=== PATIENT | male | born 1975 | race American Indian/Alaskan Native ===

== ENCOUNTER 2021-09-17 09:03 | Emergency (ER) | payer SELFPAY ==
--- NOTE | 2021-09-17 11:54 | Emergency Department Report ---
ED Extremity Problem HPI - General Chief complaint: Extremity Problem,Nontraumatic Stated complaint: RGHT KNEE SWOLLEN,RGHT BIG TOE PAIN Time Seen by Provider: 09/17/21 11:10 Source: patient Mode of arrival: Ambulatory Limitations: No Limitations - History of Present Illness Initial comments: Patient is a 46-year-old male presents emergency room complaints of right knee pain and swelling that began a week ago. Patient states a couple days ago he also began having pain and swelling in his right big toe. Patient states yesterday he began having swelling down his leg and pain in his right calf. He states he does have a history of gout. He denies any fall or injury. He denies any fever, nausea, vomiting, diarrhea, rashes, drainage, numbness, weakness. No allergies to medications. - Related Data Previous Rx's Medication Instructions Recorded Last Taken Type Colchicine 0.6 mg PO DAILY 1 Days #3 09/17/21 Unknown Rx Indomethacin [Indocin] 25 mg PO Q8H #21 cap 09/17/21 Unknown Rx Prednisone [predniSONE 10 mg 10 mg PO .TAPER #1 09/17/21 Unknown Rx (6-Day Pack, 21 Tabs)] traMADoL [Ultram 50 MG tab] 50 mg PO Q6HR PRN #12 tablet 09/17/21 Unknown Rx Allergies Allergy/AdvReac Type Severity Reaction Status Date / Time No Known Allergies Allergy Verified 09/17/21 09:45 ED Review of Systems ROS: Stated complaint: RGHT KNEE SWOLLEN,RGHT BIG TOE PAIN Other details as noted in HPI Comment: All other systems reviewed and negative ED Past Medical Hx - Past Medical History Previous Medical History?: Yes Hx Asthma: Yes Additional medical history: gout - Surgical History Past Surgical History?: No - Medications Home Medications: Home Medications Medication Instructions Recorded Confirmed Last Taken Type Colchicine 0.6 mg PO DAILY 1 Days #3 09/17/21 Unknown Rx Indomethacin [Indocin] 25 mg PO Q8H #21 cap 09/17/21 Unknown Rx Prednisone [predniSONE 10 mg 10 mg PO .TAPER #1 09/17/21 Unknown Rx (6-Day Pack, 21 Tabs)] traMADoL [Ultram 50 MG tab] 50 mg PO Q6HR PRN #12 tablet 09/17/21 Unknown Rx ED Physical Exam - General Limitations: No Limitations General appearance: alert, in no apparent distress - Head Head exam: Present: atraumatic, normocephalic - Eye Eye exam: Present: normal appearance - ENT ENT exam: Present: mucous membranes moist - Extremities Exam Extremities exam: Present: other (ttp and edema present to the right knee, right calf, and right big toe, mild increased warmth, no erythema, no skin changes, neurovascularly intact) - Neurological Exam Neurological exam: Present: alert, oriented X3 - Psychiatric Psychiatric exam: Present: normal affect, normal mood - Skin Skin exam: Present: warm, dry, intact ED Course Vital Signs 09/17/21 09/17/21 09:45 15:28 Temperature 98 F 98.5 F Pulse Rate 94 H 85 Respiratory 16 18 Rate Blood Pressure 187/119 166/98 [Left] O2 Sat by Pulse 100 98 Oximetry ED Medical Decision Making - Lab Data Result diagrams: 09/17/21 12:07 09/17/21 14:01 Lab Results 09/17/21 09/17/21 09/17/21 Range/Units 12:07 12:07 12:07 WBC 11.6 H (4.5-11.0) K/mm3 RBC 4.49 (3.65-5.03) M/mm3 Hgb 12.9 (11.8-15.2) gm/dl Hct 38.6 (35.5-45.6) % MCV 86 (84-94) fl MCH 29 (28-32) pg MCHC 34 (32-34) % RDW 14.4 (13.2-15.2) % Plt Count 411 (140-440) K/mm3 Lymph % (Auto) 29.3 (13.4-35.0) % Beadle % (Auto) 8.2 H (0.0-7.3) % Eos % (Auto) 0.8 (0.0-4.3) % Baso % (Auto) 0.6 (0.0-1.8) % Lymph # (Auto) 3.4 (1.2-5.4) K/mm3 Beadle # (Auto) 1.0 H (0.0-0.8) K/mm3 Eos # (Auto) 0.1 (0.0-0.4) K/mm3 Baso # (Auto) 0.1 (0.0-0.1) K/mm3 Seg Neutrophils % 61.1 (40.0-70.0) % Seg Neutrophils # 7.1 (1.8-7.7) K/mm3 PT 13.3 (12.2-14.9) Sec. INR 0.91 (0.87-1.13) APTT 36.1 (24.2-36.6) Sec. Sodium TNR Potassium TNR Chloride TNR Carbon Dioxide TNR Anion Gap TNR BUN TNR Creatinine TNR Estimated GFR TNR BUN/Creatinine Ratio TNR Glucose TNR Uric Acid TNR Calcium TNR Total Bilirubin TNR AST TNR ALT TNR Alkaline Phosphatase TNR C-Reactive Protein TNR Total Protein TNR Albumin TNR Albumin/Globulin Ratio TNR // Range/Units 14:01 WBC (4.5-11.0) K/mm3 RBC (3.65-5.03) M/mm3 Hgb (11.8-15.2) gm/dl Hct (35.5-45.6) % MCV (84-94) fl MCH (28-32) pg MCHC (32-34) % RDW (13.2-15.2) % Plt Count (140-440) K/mm3 Lymph % (Auto) (13.4-35.0) % Beadle % (Auto) (0.0-7.3) % Eos % (Auto) (0.0-4.3) % Baso % (Auto) (0.0-1.8) % Lymph # (Auto) (1.2-5.4) K/mm3 Beadle # (Auto) (0.0-0.8) K/mm3 Eos # (Auto) (0.0-0.4) K/mm3 Baso # (Auto) (0.0-0.1) K/mm3 Seg Neutrophils % (40.0-70.0) % Seg Neutrophils # (1.8-7.7) K/mm3 PT (12.2-14.9) Sec. INR (0.87-1.13) APTT (24.2-36.6) Sec. Sodium 142 Potassium 4.5 Chloride 100.9 Carbon Dioxide 24 Anion Gap 22 BUN 11 Creatinine 0.9 Estimated GFR > 60 BUN/Creatinine Ratio 12 Glucose 98 Uric Acid 6.6 Calcium 9.9 Total Bilirubin 0.70 AST 25 ALT 32 Alkaline Phosphatase 118 C-Reactive Protein 28.80 H Total Protein 8.6 H Albumin 4.4 Albumin/Globulin Ratio 1.0 Vital Signs 09/17/21 09/17/21 09:45 15:28 Temperature 98 F 98.5 F Pulse Rate 94 H 85 Respiratory 16 18 Rate Blood Pressure 187/119 166/98 [Left] O2 Sat by Pulse 100 98 Oximetry - Radiology Data Radiology results: report reviewed Ordering Physician: SHAMEKA MEHTA Date of Service: 09/17/21 Procedure(s): XR knee 3V RT Accession Number(s): [id number] cc: SHAMEKA MEHTA Fluoro Time In Minutes: XR knee 3V RT INDICATION / CLINICAL INFORMATION: right knee swelling and pain. COMPARISON: None available. FINDINGS: BONES/JOINT(S): No acute fracture or subluxation. 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 SOFT TISSUES: No significant abnormality. ADDITIONAL FINDINGS: None. Signer Name: Hilario Koenig MD Signed: 09/17/2021 12:06 PM Workstation Name: [id number] Transcribed By: RYLAN Dictated By: Hilario Koenig MD Electronically Authenticated By: Hilario Koenig MD Signed Date/Time: 09/17/21 1206 DD/ 1206 TD/TT: Ordering Physician: SHAMEKA MEHTA Date of Service: 09/17/21 Procedure(s): VL venous duplex LE RT Accession Number(s): [id number] cc: SHAMEKA MEHTA VL venous duplex LE RT INDICATION / CLINICAL INFORMATION: right leg swelling and pain. TECHNIQUE: Duplex doppler imaging was performed using venous compression and other maneuvers. COMPARISON: None available. FINDINGS: No venous thrombosis is identified within the visualized extremity vasculature. ADDITIONAL FINDINGS: None. IMPRESSION: 1. No sonographic evidence for DVT in the visualized right lower extremity vasculature. Signer Name: Ghassan Mera MD Signed: 09/17/2021 1:16 PM Workstation Name: [id number] Transcribed By: CS Dictated By: Ghassan Mera MD Electronically Authenticated By: Ghassan Mera MD Signed Date/Time: 09/17/21 1316 DD/ 1315 TD/TT: - Medical Decision Making Patient is a 46-year-old male presents emergency room complaints of right knee pain and swelling that began a week ago. Patient states a couple days ago he also began having pain and swelling in his right big toe. Patient states yesterday he began having swelling down his leg and pain in his right calf. He states he does have a history of gout. He denies any fall or injury. He denies any fever, nausea, vomiting, diarrhea, rashes, drainage, numbness, weakness. No allergies to medications. Initial vitals with elevated blood pressure which improved upon repeat. On exam:ttp and edema present to the right knee, right calf, and right big toe, mild increased warmth, no erythema, no skin changes, neurovascularly intact. Labs with elevated white blood cell count 11.6 and CRP is 28. XR right knee: BONES/JOINT(S): No acute fracture or subluxation. 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 SOFT TISSUES: No significant abnormality. ADDITIONAL FINDINGS: None. US RLE: 1. No sonographic evidence for DVT in the visualized right lower extremity vasculature. discussed case with Dr. Hung, ER attending regarding presentation and results and he believes likely secondary to gout. pt given IM toradol and IM dexamethasone. advised pt Please take medication as prescribed. Increase your water intake. Follow-up with your primary care doctor. Return to emergency room for any new or worsening sympt oms. Eat a low-sodium diet. Incorporate 30 to 60 minutes of daily exercise. Follow- up with a primary care doctor regarding the elevation of a pressure during today's visit. keep a blood pressure log and take this to the primary care doctor Critical care attestation.: If time is entered above; I have spent that time in minutes in the direct care of this critically ill patient, excluding procedure time. ED Disposition Clinical Impression: Knee swelling, Toe swelling, Elevated blood pressure reading Knee pain Qualifiers: Chronicity: acute Laterality: left Qualified Code(s): M25.562 - Pain in left knee Toe pain Qualifiers: Laterality: right Qualified Code(s): M79.674 - Pain in right toe(s) Disposition: HOME / SELF CARE / HOMELESS Is pt being admited?: No Does the pt Need Aspirin: No Condition: Stable Instructions: Acute Knee Pain, Adult, Low-Purine Eating Plan Additional Instructions: Please take medication as prescribed. Increase your water intake. Follow-up with your primary care doctor. Return to emergency room for any new or worsening symptoms. Eat a low-sodium diet. Incorporate 30 to 60 minutes of daily exercise. Follow- up with a primary care doctor regarding the elevation of a pressure during today's visit. keep a blood pressure log and take this to the primary care doctor Prescriptions: Colchicine 0.6 mg PO DAILY 1 Days #3 Indomethacin [Indocin] 25 mg PO Q8H #21 cap Prednisone [predniSONE 10 mg (6-Day Pack, 21 Tabs)] 10 mg PO .TAPER #1 traMADoL [Ultram 50 MG tab] 50 mg PO Q6HR PRN #12 tablet PRN Reason: Pain Referrals: PRIMARY MD GIFTY [Primary Care Provider] - 3-5 Days ALFA DELGADO MD [Staff Physician] - 3-5 Days [facility] [Provider Group] - 3-5 Days Time of Disposition: 15:23 Print Language: ARMENIAN
--- NOTE | 2021-09-17 12:10 | XRay Report ---
XR knee 3V RT INDICATION / CLINICAL INFORMATION: right knee swelling and pain. COMPARISON: None available. FINDINGS: BONES/JOINT(S): No acute fracture or subluxation. 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 SOFT TISSUES: No significant abnormality. ADDITIONAL FINDINGS: None. Signer Name: Hilario Koenig MD Signed: 09/17/2021 12:06 PM Workstation Name: [id number]
[2021-09-17 12:43] LABS: Basophils # (Auto) 0.1 K/mm3 (0.0-0.1); Basophils % (Auto) 0.6 % (0.0-1.8); Eosinophils # (Auto) 0.1 K/mm3 (0.0-0.4); Eosinophils % (Auto) 0.8 % (0.0-4.3); Hematocrit 38.6 % (35.5-45.6); Hemoglobin 12.9 gm/dl (11.8-15.2); Lymphocytes # (Auto) 3.4 K/mm3 (1.2-5.4); Lymphocytes % (Auto) 29.3 % (13.4-35.0); Mean Corpuscular HGB Conc 34 % (32-34); Mean Corpuscular Volume 86 fl (84-94); Monocytes % (Auto) 8.2 % (0.0-7.3); Platelet Count 411 K/mm3 (140-440); Red Blood Count 4.49 M/mm3 (3.65-5.03); Red Cell Distribution Width 14.4 % (13.2-15.2)
[2021-09-17 13:02] LABS: INR 0.91 (0.87-1.13)
[2021-09-17 13:03] LABS: Partial Thromboplastin Time 36.1 Sec. (24.2-36.6)
[2021-09-17 13:17] LABS: Blood Urea Nitrogen TNR mg/dL (9-20)
[2021-09-17 13:18] LABS: Alanine Aminotransferase TNR units/L (7-56); BUN/Creatinine Ratio TNR; Calcium TNR mg/dL (8.4-10.2); Uric Acid TNR mg/dL (3.5-7.6)
[2021-09-17 13:19] LABS: Albumin TNR g/dL (3.9-5); C-Reactive Protein TNR mg/dL (0.00-1.30); Hemolysis Index TNR
--- NOTE | 2021-09-17 13:20 | Vascular Lab Report ---
VL venous duplex LE RT INDICATION / CLINICAL INFORMATION: right leg swelling and pain. TECHNIQUE: Duplex doppler imaging was performed using venous compression and other maneuvers. COMPARISON: None available. FINDINGS: No venous thrombosis is identified within the visualized extremity vasculature. ADDITIONAL FINDINGS: None. IMPRESSION: 1. No sonographic evidence for DVT in the visualized right lower extremity vasculature. Signer Name: Ghassan Mera MD Signed: 09/17/2021 1:16 PM Workstation Name: [id number]
[2021-09-17 14:49] LABS: Alanine Aminotransferase 32 units/L (7-56); Albumin 4.4 g/dL (3.9-5); BUN/Creatinine Ratio 12; Blood Urea Nitrogen 11 mg/dL (9-20); Calcium 9.9 mg/dL (8.4-10.2); Hemolysis Index 33; Uric Acid 6.6 mg/dL (3.5-7.6)
[2021-09-17] MEDS ORDERED: KETOROLAC 30 MG/1 ML INJ ONE (15:12)
[2021-09-17] MEDS ORDERED: dexAMETHasone 20 MG/5 ML VIAL IM ONE (15:14)
[2021-09-17 15:29] VITALS: BP 166/98
== END 2021-09-17 15:34 | disposition home or self-care (01) ==
LOC: ED 09:03
DX: M25.561 Pain in right knee (principal); M79.674 Pain in right toe(s); J45.909 Unspecified asthma, uncomplicated; R03.0 Elevated blood-pressure reading, without diagnosis of hypertension; R60.9 Edema, unspecified
CPT/HCPCS: 36415; 73562; 80053; 84550; 85025; 85610; 85730; 86140; 93971; 96372; 99284; J1100; J1885